=== PATIENT | female | born 1975 | race Hispanic/Latino ===

== ENCOUNTER 2017-01-22 07:23 | Emergency (ER) | payer SELFPAY ==
[2017-01-22] MEDS ORDERED: Ketorolac Tromethamine 30 MG/ML VIAL ONE (08:02)
[2017-01-22] MEDS ORDERED: predniSONE 20 MG TAB ONE (08:02)
--- NOTE | 2017-01-22 08:56 | RAD ---
RIGHT KNEE FOUR VIEWS: HISTORY: Right knee pain. FINDINGS: No fracture, dislocation, or bony destruction is seen. No joint effusion is identified. POS: OFF
--- NOTE | 2017-01-22 08:56 | RAD ---
LEFT KNEE FOUR VIEWS: HISTORY: Left knee pain. FINDINGS: No fracture, dislocation, or bony destruction is seen. No joint effusion is identified. POS: OFF
--- NOTE | 2017-01-22 08:57 | RAD ---
LUMBAR SPINE THREE VIEWS: HISTORY: Low back pain. FINDINGS: Minimal degenerative changes are seen. No fracture, subluxation, or bony destruction is identified. POS: OFF
== END 2017-01-22 09:50 | disposition home or self-care (01) ==
LOC: ERS 07:23
DX: M54.5 Low back pain (principal); M25.562 Pain in left knee; M25.561 Pain in right knee
CPT/HCPCS: 72100; 96372; J1885; J7506

== ENCOUNTER 2017-01-24 08:51 | Emergency (ER) | payer SELFPAY ==
[2017-01-24] MEDS ORDERED: diphenhydrAMINE HCl 50 MG/ML 1 ML VIAL ONE (08:58)
[2017-01-24] MEDS ORDERED: Metoclopramide HCl 10 MG/2 ML VIAL ONE (08:58)
[2017-01-24] MEDS ORDERED: Acetaminophen 500 MG TAB ONE (08:58)
[2017-01-24] MEDS ORDERED: Ketorolac Tromethamine 30 MG/ML VIAL ONE (09:28)
--- NOTE | 2017-01-24 11:10 | CT ---
CT BRAIN WITHOUT CONTRAST: HISTORY: Headache, migraine. FINDINGS: No evidence of acute infarct, hemorrhage, midline shift, or abnormal extraaxial fluid collections ar e seen. The ventricular size is normal and the basilar cisterns patent. The bony calvarium is inta ct. The visualized paranasal sinuses and mastoid air cells are well aerated. IMPRESSION: No CT evidence of acute intracranial process. POS: [facility]
== END 2017-01-24 11:25 | disposition home or self-care (01) ==
LOC: ERS 08:51
DX: G43.909 Migraine, unspecified, not intractable, without status migrainosus (principal)
CPT/HCPCS: 70450; 96361; 96374; 96375; J1200; J1885; J2765

== ENCOUNTER 2017-05-28 13:22 | Emergency (ER) | payer SELFPAY ==
[2017-05-28 14:34] LABS: Bilirubin Negative (Negative); Blood, Urine Small (Negative); Clarity CLOUDY (Clear); Glucose, Urine (Dipstick) Negative (Negative); Leukocyte Negative (Negative); Nitrite Negative (Negative); Protein, Urine (Dipstick) Negative (Neg-Trace); Urobilinogen 0.2 mg/dL (0.2-1.0)
[2017-05-28 14:37] LABS: Bacteria/HPF None Seen HPF (None Seen); Hyaline Casts/LPF 0-3 HYALINE CAST LPF (0-3 Hyaline); Pathc Cast-AUWi Flag 0.13 (0-2.49); Pregnancy Test - Urine (BHCG) Negative (Negative); Pregu Control Background? CLEAR/WHITE (CLR/WHITE); Pregu Control Bar Appear? YES (CONTROL BAR); Squamous Epithelial 0-3 HPF (0-3); WBC/HPF None Seen HPF (0-3)
--- NOTE | 2017-05-28 16:42 | RAD ---
LUMBAR SPINE THREE VIEW 05/28/17 HISTORY: Back pain. COMPARISON: Lumbar spine radiograph 01/22/17. FINDINGS: No acute fracture or malalignment of the lumbar spine. Chronic appearing anterior wedging at thoracol umbar junction. Anterior osteophytes L4 and L5. Likely due to difference in obliquity, there appears to be some minimal height loss at L1 although th is is likely artifactual. IMPRESSION: No acute abnormality. POS: [facility]
== END 2017-05-28 17:06 | disposition home or self-care (01) ==
LOC: ERS 13:22
DX: S39.012A Strain of muscle, fascia and tendon of lower back, initial encounter (principal); W06.XXXA Fall from bed, initial encounter
CPT/HCPCS: 72100; 81003; 81015; 81025

== ENCOUNTER 2021-12-15 09:10 | Outpatient (CLI) | payer OTHER | END 2021-12-15 09:11 | disposition home or self-care (01) | LOC: SCSMRI 09:10 | PROVIDERS: ATTEND Neurological Surgery | DX: M47.26 Other spondylosis with radiculopathy, lumbar region (principal); M47.27 Other spondylosis with radiculopathy, lumbosacral region | CPT/HCPCS: 72148 ==

== ENCOUNTER 2022-08-28 01:39 | Emergency (ER) | payer SELFPAY ==
[2022-08-28 02:46] LABS: #Basophils 0.1 thou/uL (0.0-0.2); #Eosinphils 0.4 thou/uL (0.0-0.7); #Monocytes 0.7 thou/uL (0.11-0.59); #Neutrophils 7.8 thou/uL (1.40-6.50); %Basophils 0.7 % (0.0-1.0); %Eosinophils 3.3 % (0.0-10.0); %Lymphocytes 30.5 % (21.0-51.0); %Monocytes 5.5 % (0.0-10.0); Hemoglobin 13.5 g/dL (12.0-16.0); Mean Corpuscular HGB CONC 35.2 g/dL (32.0-36.0); Mean Corpuscular Hemoglobin 32.1 pg (27.0-31.0); Mean Corpuscular Volume 91.1 fl (78.0-98.0); Mean Platelet Volume 7.9 fL (7.4-10.4); Platelet Count 314 10x3/uL (130-400); RBC Distribution Width 12.4 % (11.5-14.5); Red Blood Cell (RBC) Count 4.21 mill/uL (4.20-5.40); White Blood Cell (WBC) Count 12.9 10x3/uL (4.8-10.8)
[2022-08-28 02:52] LABS: ALT (SGPT) 32 U/L (8-55); AST (SGOT) 26 U/L (5-34); Albumin 4.1 g/dL (3.5-5.0); Alkaline Phosphatase 90 U/L (40-110); Anion Gap 13 mmol/L (10-20); BUN (Urea Nitrogen) 12 mg/dL (7.0-18.7); Bilirubin, Total 0.3 mg/dL (0.2-1.2); Calc. Creatinine Clearance 0 mL/min (70-130); Carbon Dioxide 26 mmol/L (22-29); Chloride 103 mmol/L (98-107); Estimated GFR 94; Glucose 89 mg/dL (70-105); Potassium 3.6 mmol/L (3.5-5.1); Protein, Total 8.1 g/dL (6.0-8.3); Sodium 138 mmol/L (136-145)
== END 2022-08-28 04:04 | disposition home or self-care (01) ==
LOC: ERS 01:39
DX: R07.89 Other chest pain (principal); D72.829 Elevated white blood cell count, unspecified
CPT/HCPCS: 36415; 71045; 80053; 84484; 85025; 93005; 94760

== ENCOUNTER 2023-03-02 11:50 | Emergency (ER) | payer SELFPAY ==
[2023-03-02] MEDS ORDERED: Lidocaine 2% Viscous Solution 10 ML, Aluminum & Magnesium Hydroxide 30 ML SSW SCH (13:15)
== END 2023-03-02 15:16 | disposition home or self-care (01) ==
LOC: ERS 11:50
DX: K20.80 Other esophagitis without bleeding (principal); K21.9 Gastro-esophageal reflux disease without esophagitis
CPT/HCPCS: 99284

== ENCOUNTER 2023-05-17 17:50 | Emergency (ER) | payer SELFPAY ==
[2023-05-17 19:57] LABS: SARS-CoV-2 NAA Rapid Test Not Detected (NotDetected)
[2023-05-17] MEDS ORDERED: Dexamethasone 10 MG/ML VIAL ONE (20:34)
[2023-05-17] MEDS ORDERED: Ketorolac Tromethamine 30 MG (1 mL) VIAL ONE (20:35)
[2023-05-17] MEDS ORDERED: Metoclopramide HCl 10 MG (2 mL) VIAL ONE (20:35)
[2023-05-17 21:09] LABS: #Basophils 0.1 thou/uL (0.0-0.2); #Eosinphils 0.1 thou/uL (0.0-0.7); #Monocytes 0.6 thou/uL (0.11-0.59); %Basophils 0.4 % (0.0-1.0); %Eosinophils 1.1 % (0.0-10.0); %Lymphocytes 27.2 % (21.0-51.0); %Neutrophils 66.1 % (42.0-75.0); Hematocrit 41.9 % (36.0-47.0); Hemoglobin 13.8 g/dL (12.0-16.0); Mean Corpuscular HGB CONC 32.9 g/dL (32.0-36.0); Mean Corpuscular Hemoglobin 29.8 pg (27.0-31.0); Mean Corpuscular Volume 90.5 fl (78.0-98.0); Mean Platelet Volume 10.1 fL (7.4-10.4); Platelet Count 386 10x3/uL (130-400); RBC Distribution Width 13.5 % (11.5-14.5); Red Blood Cell (RBC) Count 4.63 mill/uL (4.20-5.40); White Blood Cell (WBC) Count 12.1 10x3/uL (4.8-10.8)
[2023-05-17 21:30] LABS: ALT (SGPT) 25 U/L (8-55); AST (SGOT) 22 U/L (5-34); Albumin 4.4 g/dL (3.5-5.0); Alkaline Phosphatase 101 U/L (40-110); Anion Gap 10 mmol/L (10-20); BUN (Urea Nitrogen) 13 mg/dL (7.0-18.7); Bilirubin, Total 0.2 mg/dL (0.2-1.2); Calc. Creatinine Clearance 0 mL/min (70-130); Calcium 9.1 mg/dL (7.8-10.44); Carbon Dioxide 28 mmol/L (22-29); Chloride 103 mmol/L (98-107); Estimated GFR 98; Globulin 4.7 g/dL (2.4-3.5); Glucose 108 mg/dL (70-105); Potassium 4.1 mmol/L (3.5-5.1); Protein, Total 9.1 g/dL (6.0-8.3); Sodium 137 mmol/L (136-145)
[2023-05-17 21:34] LABS: Troponin I Less than 0.010 ng/mL (< 0.028)
== END 2023-05-17 21:49 | disposition home or self-care (01) ==
LOC: ERS 17:50
DX: R51.9 Headache, unspecified (principal); R07.9 Chest pain, unspecified
CPT/HCPCS: 80053; 84484; 85025; 93005; 96374; 96375; J1100; J1885; J2765

== ENCOUNTER 2023-07-28 16:21 | Emergency (ER) | payer SELFPAY ==
[2023-07-28] MEDS ORDERED: Acetaminophen 500 MG TAB ONE (17:03)
[2023-07-28 17:28] LABS: #Basophils 0.03 10x3/uL (0.0-0.2); %Basophils 0.3 % (0.0-1.0); %Eosinophils 0.5 % (0.0-10.0); %Lymphocytes 16.7 % (21.0-51.0); %Neutrophils 78.2 % (42.0-75.0); Hematocrit 41.4 % (36.0-47.0); Hemoglobin 13.8 g/dL (12.0-16.0); Mean Corpuscular HGB CONC 33.3 g/dL (32.0-36.0); Mean Corpuscular Hemoglobin 29.7 pg (27.0-31.0); Mean Corpuscular Volume 89.2 fL (78.0-98.0); Mean Platelet Volume 9.9 fL (7.4-10.4); Platelet Count 354 10x3/uL (130-400); RBC Distribution Width 13.4 % (11.5-14.5); Red Blood Cell (RBC) Count 4.64 mill/uL (4.20-5.40)
[2023-07-28 17:51] LABS: Troponin I Less than 0.010 ng/mL (< 0.028)
[2023-07-28 17:54] LABS: ALT (SGPT) 23 U/L (8-55); AST (SGOT) 19 U/L (5-34); Albumin 4.6 g/dL (3.5-5.0); Alkaline Phosphatase 109 U/L (40-110); Anion Gap 13 mmol/L (10-20); BUN (Urea Nitrogen) 10 mg/dL (7.0-18.7); Bilirubin, Total 0.2 mg/dL (0.2-1.2); Calc. Creatinine Clearance 0 mL/min (70-130); Calcium 9.6 mg/dL (7.8-10.44); Carbon Dioxide 27 mmol/L (22-29); Chloride 105 mmol/L (98-107); Estimated GFR 95; Globulin 4.6 g/dL (2.4-3.5); Glucose 124 mg/dL (70-105); Potassium 3.6 mmol/L (3.5-5.1); Protein, Total 9.2 g/dL (6.0-8.3); Sodium 141 mmol/L (136-145)
== END 2023-07-28 17:35 | disposition home or self-care (01) ==
LOC: ERS 16:21
DX: I10 Essential (primary) hypertension (principal); Z55.6 Problems related to health literacy; Z79.899 Other long term (current) drug therapy
CPT/HCPCS: 71045; 80053; 84484; 85025; 93005